=== PATIENT | female | born 1985 ===

== ENCOUNTER 2016-11-16 22:39 | Emergency (ER) | payer MEDICAID ==
[2016-11-16 22:39] VITALS: BMI 24.5
[2016-11-16 22:59] VITALS: BP 99/66; PULSE 85; RESP 16; TEMP 98.4; O2SAT 100
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
== END 2016-11-17 00:08 | disposition home or self-care (01) ==
LOC: H.ER 22:39
DX: S00.83XA Contusion of other part of head, initial encounter (principal); W50.0XXA Accidental hit or strike by another person, initial encounter

== ENCOUNTER 2017-02-01 10:23 | Emergency (ER) | payer MEDICAID ==
[2017-02-01 10:28] VITALS: BMI 24.7
[2017-02-01 10:31] VITALS: BP 136/57; PULSE 74; RESP 18; TEMP 99; O2SAT 99
[2017-02-01 11:19] LABS: SQUAMOUS EPITHIAL 1 /hpf (0-5); URINE BACTERIA RARE (<OCC); URINE BILIRUBIN NEGATIVE (NEGATIVE); URINE BLOOD NEGATIVE (NEGATIVE); URINE CLARITY CLEAR (Clear); URINE COLOR YELLOW (YELLOW); URINE GLUCOSE (UA) NEG (Normal); URINE LEUKOCYTE ESTERASE NEG Leu/uL (Negative); URINE NITRATE NEGATIVE (NEGATIVE); URINE PROTEIN NEGATIVE (NEGATIVE); URINE UROBILINOGEN 0.2-1.0 mg/dL (0.2-1.0)
--- NOTE | 2017-02-01 11:19 | ED PDOC ---
HPI: Abdomen Time Seen by Provider: 02/01/17 11:00 Chief Complaint (Nursing): Abdominal Pain Chief Complaint (Provider): ABDOMINAL PAIN History Per: Patient (31 Y/O FEMALE APPROX 8 WEEK GESTATION HERE WITH LEFT SIDED FLANK/LOWER ABDOMINAL PAIN X 1 DAY GRADUAL ONSET. NOTES ADDITIONAL BURING WITH URINATION. DENIES ANY FEVERS/CHILLS/VOMITING. US SCHEDULED 02/11.) Past Medical History Reviewed: Historical Data, Nursing Documentation, Vital Signs Vital Signs: Last Vital Signs Temp 99 F 02/01/17 10:28 Pulse 74 02/01/17 10:28 Resp 18 02/01/17 10:28 BP 136/57 L 02/01/17 10:28 Pulse Ox 99 02/01/17 14:14 - Medical History PMH: Asthma, Migraine - Family History Family History: States: Unknown Family Hx - Immunization History Hx Tetanus Toxoid Vaccination: Yes - Home Medications Home Medications: Ambulatory Orders Medication Instructions Recorded Bacitracin [Bacitracin Opht OINT] 1 applic OD Q4 #1 tube 01/19/17 - Allergies Allergies/Adverse Reactions: Allergies Allergy/AdvReac Type Severity Reaction Status Date / Time No Known Allergies Allergy Verified 01/19/17 11:19 Review of Systems ROS Statement: Except As Marked, All Systems Reviewed And Found Negative Physical Exam - Reviewed Nursing Documentation Reviewed: Yes Vital Signs Reviewed: Yes - Physical Exam Appears: Positive for: Well, Non-toxic, No Acute Distress Head Exam: Positive for: ATRAUMATIC, NORMAL INSPECTION, NORMOCEPHALIC Skin: Positive for: Normal Color, Warm, DRY Eye Exam: Positive for: EOMI, Normal appearance, PERRL ENT: Positive for: Normal ENT Inspection Neck: Positive for: Normal, Painless ROM Cardiovascular/Chest: Positive for: Regular Rate, Rhythm Respiratory: Positive for: CNT, Normal Breath Sounds Gastrointestinal/Abdominal: Positive for: Normal Exam, Bowel Sounds, Soft, Tenderness (LUQ/LLQ) Pelvic Exam: Positive for: Tender Adnexa (MILD TENDERNESS LEFT ADNEXA.) Back: Positive for: Normal Inspection Extremity: Positive for: Normal ROM Neurologic/Psych: Positive for: Alert, Oriented - Laboratory Results Result Diagrams: 02/01/17 11:10 02/01/17 11:10 - ECG O2 Sat by Pulse Oximetry: 99 Medical Decision Making Medical Decision Making: US RENAL FINDINGS: RIGHT KIDNEY: Measures: cm. Normal in size, contour and echogenicity. No stone, solid mass lesion or hydronephrosis visualized. LEFT KIDNEY: Measures: cm. Normal in size, contour and echogenicity. No stone, solid mass lesion or hydronephrosis visualized. OTHER FINDINGS: None. IMPRESSION: Unremarkable renal sonogram. US TRANSVAGINAL FINDINGS: Single live intrauterine gestation with crown-rump length of 2 millimeters corresponding to 5 weeks and 5 days gestational age. heart motion is observed. 2.6 centimeter left ovarian corpus luteum. IMPRESSION: As above. Disposition - Clinical Impression Clinical Impression: Abdominal pain during , Ovarian cyst - Patient ED Disposition Is Patient to be Admitted: No - Disposition Referrals: Provider TBD, [Primary Care Provider] - Disposition: Routine/Home Disposition Time: 14:13 Condition: FAIR Instructions: Threatened Miscarriage (ED), Ovarian Cyst (ED) Forms: [facility] ED School/Work Excuse
[2017-02-01 11:36] LABS: BASO % 0.3 % (0.0-2.0); EOS # 0.1 K/uL (0.0-0.7); EOS % 1.2 % (0.0-4.0); HEMOGLOBIN 12.3 g/dL (12.0-16.0); LYMPH # 2.2 K/uL (1.0-4.3); LYMPH % 25.6 % (20.0-40.0); MEAN CORPUSCULAR HEMOGLOBIN 29.8 pg (27.0-31.0); MEAN CORPUSCULAR HGB CONC 33.1 g/dL (33.0-37.0); MEAN PLATELET VOLUME 8.1 fl (7.2-11.7); MONO # 0.6 K/uL (0.0-0.8); MONO % 6.8 % (0.0-10.0); NEUT # 5.8 K/uL (1.8-7.0); NEUT % 66.1 % (50.0-75.0); RBC 4.12 Mil/uL (3.80-5.20); RED CELL DISTRIBUTION WIDTH 13.3 % (11.5-14.5); WHITE BLOOD COUNT 8.7 K/uL (4.8-10.8)
[2017-02-01 11:50] LABS: ALB/GLOB RATIO 1.5 (1.0-2.1); ALBUMIN 4.1 g/dL (3.5-5.0); ALT/SGPT 25 U/L (9-52); AST/SGOT 18 U/L (14-36); BLOOD UREA NITROGEN 11 mg/dl (7-17); CALCIUM 8.9 mg/dL (8.4-10.2); GFR AFRICAN-AMERICAN > 60; GFR NON-AFRICAN AMERICAN > 60
--- NOTE | 2017-02-01 14:05 | US ---
PROCEDURE: Ultrasound of the Kidneys HISTORY: LEFT FLANK EVALUATE FOR HYDRONEPHROSIS/PYELONEPHRI COMPARISON: None available. TECHNIQUE: Sonogram of the kidneys. FINDINGS: RIGHT KIDNEY: Measures: cm. Normal in size, contour and echogenicity. No stone, solid mass lesion or hydronephrosis visualized. LEFT KIDNEY: Measures: cm. Normal in size, contour and echogenicity. No stone, solid mass lesion or hydronephrosis visualized. OTHER FINDINGS: None. IMPRESSION: Unremarkable renal sonogram.
--- NOTE | 2017-02-01 14:06 | US ---
PROCEDURE: HISTORY: LEFT ABDOMINAL PAIN EVALUATION FOR ECTOPIC/CYST COMPARISON: TECHNIQUE: FINDINGS: Single live intrauterine gestation with crown-rump length of 2 millimeters corresponding to 5 weeks and 5 days gestational age. heart motion is observed. 2.6 centimeter left ovarian corpus luteum. IMPRESSION: As above.
== END 2017-02-01 14:15 | disposition home or self-care (01) ==
LOC: SUPCPDRO 10:23 → H.ER 10:23
DX: O26.899 Other specified pregnancy related conditions, unspecified trimester (principal); N83.292 Other ovarian cyst, left side

== ENCOUNTER 2017-02-21 19:04 | Emergency (ER) | payer MEDICAID ==
[2017-02-21 19:04] VITALS: BMI 24.7
[2017-02-21 19:30] VITALS: BP 123/61; PULSE 84; RESP 16; TEMP 98.6; O2SAT 99
[2017-02-21] MEDS ORDERED: Docusate-Senna 50 mg-8.6 mg Tab PO STA (19:55)
--- NOTE | 2017-02-21 20:21 | ED PDOC ---
HPI: Abdomen Time Seen by Provider: 02/21/17 19:48 Chief Complaint (Nursing): Abdominal Pain Chief Complaint (Provider): flank pain History Per: Patient History/Exam Limitations: no limitations Onset/Duration Of Symptoms: Days (14) Current Symptoms Are (Timing): Still Present Pain Scale Rating Of: 3 Location Of Pain/Discomfort: Other (L/flank) Quality Of Discomfort: "Pain" Associated Symptoms: Urinary Symptoms Additional Complaint(s): 31 y/o F at 9 weeks IUP presents to ED c/o persistent L/flank pain for the past 2 weeks. Last BM 3 days ago and she noticed small amount of blood in the urine today and c/o dysuria. Denies vaginal bleeding, CP, palpitations, diarrhea , hx of trauma, dizziness or SOB. Patient had renal and TV US on 02/01/17 that shows no 2.6 cm L/ovarian corpus luteum and US consistent at the time with 5.5W . No Kidney stones. Denies fever. Abnormal Vaginal Bleeding: No Last Menstral Period: 12/26/16 : 4 Para: 2 Miscarriage: 1 Past Medical History Vital Signs: Last Vital Signs Temp 98.6 F 02/21/17 19:25 Pulse 84 02/21/17 19:25 Resp 16 02/21/17 19:25 BP 123/61 02/21/17 19:25 Pulse Ox 99 02/21/17 22:53 - Medical History PMH: Asthma, Migraine Denies: Chronic Kidney Disease - Family History Family History: States: Unknown Family Hx - Immunization History Hx Tetanus Toxoid Vaccination: Yes - Home Medications Home Medications: Ambulatory Orders Medication Instructions Recorded Bacitracin [Bacitracin Opht OINT] 1 applic OD Q4 #1 tube 01/19/17 Nitrofurantoin Macrocrystals 100 mg PO BID #14 cap 02/21/17 [Macrobid] - Allergies Allergies/Adverse Reactions: Allergies Allergy/AdvReac Type Severity Reaction Status Date / Time No Known Allergies Allergy Verified 01/19/17 11:19 Review of Systems ROS Statement: Except As Marked, All Systems Reviewed And Found Negative Genitourinary Female: Positive for: Dysuria, Hematuria, Other (Flank pain) Physical Exam - Reviewed Nursing Documentation Reviewed: Yes Vital Signs Reviewed: Yes - Physical Exam Appears: Positive for: Non-toxic, No Acute Distress Head Exam: Positive for: ATRAUMATIC, NORMAL INSPECTION Skin: Positive for: Warm, Dry Eye Exam: Positive for: EOMI, PERRL Cardiovascular/Chest: Positive for: Regular Rate, Rhythm. Negative for: Gallop , Murmur Respiratory: Positive for: Normal Breath Sounds. Negative for: Crackles, Wheezing Gastrointestinal/Abdominal: Positive for: Normal Exam Back: Negative for: L CVA Tenderness, R CVA Tenderness Extremity: Positive for: Normal ROM. Negative for: Pedal Edema, Calf Tenderness Neurologic/Psych: Positive for: Alert, Oriented - Laboratory Results Result Diagrams: 02/21/17 20:35 - ECG O2 Sat by Pulse Oximetry: 99 - Progress ED Course And Treament: WBC slightly elevated poss due to Urine: small blood and RBC 4 REst WNL US: WNL 8.5w IUP Patient improved Will be DC on Macrobid BID for poss UTI(Dysuria + Blood in the urine) Medical Decision Making Medical Decision Makin31 y/o F with no PMHx 9+ weeks by LMP presents c/o L/flank pain L/flank pain hematuria + dysuria R/O UTI Pelvic and TV US Senokot for constipation Disposition - Clinical Impression Clinical Impression: Constipation, UTI (urinary tract infection) - Disposition Disposition Time: 22:50 Condition: IMPROVED Prescriptions: Nitrofurantoin Macrocrystals [Macrobid] 100 mg PO BID #14 cap Instructions: Constipation (ED), Urinary Tract Infection in (ED) Forms: [employer] (Sudanese)
[2017-02-21 20:49] LABS: MEAN CELL VOLUME 90.2 fl (81.0-99.0); MEAN CORPUSCULAR HGB CONC 33.2 g/dL (33.0-37.0); RBC 4.02 Mil/uL (3.80-5.20); RED CELL DISTRIBUTION WIDTH 13.5 % (11.5-14.5); WHITE BLOOD COUNT 12.2 K/uL (4.8-10.8)
[2017-02-21 20:51] LABS: SQUAMOUS EPITHIAL < 1 /hpf (0-5); URINE BACTERIA RARE (<OCC); URINE BILIRUBIN NEGATIVE (NEGATIVE); URINE BLOOD SMALL (NEGATIVE); URINE CLARITY SLIGHTY-CLOUDY (Clear); URINE COLOR YELLOW (YELLOW); URINE GLUCOSE (UA) NEG (Normal); URINE LEUKOCYTE ESTERASE NEG Leu/uL (Negative); URINE NITRATE NEGATIVE (NEGATIVE); URINE PROTEIN NEGATIVE (NEGATIVE); URINE UROBILINOGEN 0.2-1.0 mg/dL (0.2-1.0)
--- NOTE | 2017-02-21 22:45 | US ---
EXAM: US Uterus, Limited CLINICAL HISTORY: 31 years old, female; Pain; Other: Abd pain; Gestational age or lmp: Unknown; ; Additional info: Preg abd pain TECHNIQUE: Real-time ultrasound of the maternal uterus (limited) with image documentation. COMPARISON: No relevant prior studies available. FINDINGS: A single intrauterine gestation is identified with a crown-rump length measuring 2.1 cm, corresponding to an approximate gestational age of 8 weeks and 5 days. cardiac activity is identified at the rate of 171 beats per minute. The cervix measures 4.5 cm, and is closed. The right ovary is unremarkable in echogenicity and size measuring 1.9 x 1.6 x 2.0 cm. Dopplerable flow is identified. The left ovary is unremarkable in echogenicity and size and measures 2.7 x 2.0 x 3.0 cm. Dopplerable flow is identified. IMPRESSION: Single intrauterine gestation with approximate gestational age of 8 weeks and 5 days. cardiac activity is identified.
== END 2017-02-21 23:04 | disposition home or self-care (01) ==
LOC: H.ER 19:04
DX: O23.41 Unspecified infection of urinary tract in pregnancy, first trimester (principal); Z3A.09 9 weeks gestation of pregnancy; O26.891 Other specified pregnancy related conditions, first trimester; K59.00 Constipation, unspecified

== ENCOUNTER 2017-02-27 21:42 | Emergency (ER) | payer MEDICAID ==
[2017-02-27 21:43] VITALS: BMI 24.7
[2017-02-27 21:48] VITALS: BP 116/60; PULSE 83; RESP 16; TEMP 99.1; O2SAT 100
--- NOTE | 2017-02-27 23:47 | ED PDOC ---
HPI: Skin/Bite Injury Time Seen by Provider: 02/27/17 22:16 Chief Complaint (Nursing): ENT Problem Chief Complaint (Provider): Skin Issue History Per: Patient History/Exam Limitations: no limitations Onset/Duration Of Symptoms: Days (x2) Current Symptoms Are (Timing): Still Present Location Of Injury: Right: Mouth (Sore on right lower lip) Quality Of Symptoms: Painful Additional Complaint(s): 31 year old female presents to ED with complaints of a sore on her right lower lip x2 days and is currently 10 weeks . Patient notes sore is increasingly painful and created cause for concern, prompting ED visit. (-) fever, ear pain, sore throat, or vomiting. Patient also notes swelling of her face from swollen lymph nodes. PCP: Arnulfo Moreno Past Medical History Reviewed: Historical Data, Nursing Documentation, Vital Signs Vital Signs: Last Vital Signs Temp 99.1 F 02/27/17 21:44 Pulse 83 02/27/17 21:44 Resp 16 02/27/17 21:44 BP 116/60 02/27/17 21:44 Pulse Ox 100 02/27/17 21:44 - Medical History PMH: Asthma, Migraine Denies: Chronic Kidney Disease - Surgical History Surgical History: No Surg Hx - Family History Family History: States: Unknown Family Hx - Social History Current smoker - smoking cessation education provided: No Ex-Smoker (has not smoked in the last 12 months): No Alcohol: None Drugs: Denies - Immunization History Hx Tetanus Toxoid Vaccination: Yes - Home Medications Home Medications: Ambulatory Orders Medication Instructions Recorded Bacitracin [Bacitracin Opht OINT] 1 applic OD Q4 #1 tube 01/19/17 Nitrofurantoin Macrocrystals 100 mg PO BID #14 cap 02/21/17 [Macrobid] Valacyclovir HCl [Valtrex] 2 gm PO BID #4 tablet 02/27/17 - Allergies Allergies/Adverse Reactions: Allergies Allergy/AdvReac Type Severity Reaction Status Date / Time No Known Allergies Allergy Verified 02/27/17 21:44 Review of Systems ROS Statement: Except As Marked, All Systems Reviewed And Found Negative Constitutional: Negative for: Fever ENT: Negative for: Ear Pain, Throat Pain Gastrointestinal: Negative for: Vomiting Skin: Positive for: Other (Sore on right lower lip) Physical Exam - Reviewed Nursing Documentation Reviewed: Yes Vital Signs Reviewed: Yes - Physical Exam Appears: Positive for: Non-toxic, No Acute Distress Head Exam: Positive for: ATRAUMATIC, NORMOCEPHALIC Skin: Positive for: Normal Color, Warm, Dry Eye Exam: Positive for: Normal appearance, EOMI, PERRL ENT: Positive for: Pharynx Is (clear). Negative for: Normal ENT Inspection ( Right vasicular lesion on right lower lip (2cm x2cm). Appears to be herpes labialis) Neck: Positive for: Painless ROM, Supple. Negative for: Normal (Multiple lumph nodes in submandibular and cervical area are swollen) Cardiovascular/Chest: Positive for: Regular Rate, Rhythm. Negative for: Murmur Respiratory: Positive for: Normal Breath Sounds. Negative for: Respiratory Distress Neurologic/Psych: Positive for: Alert, Oriented. Negative for: Motor/Sensory Deficits - ECG O2 Sat by Pulse Oximetry: 100 (RA) Pulse Ox Interpretation: Normal Medical Decision Making Medical Decision Makin Initial impression: herpes labialis Initial plan: Explained to patient about herpes labialis and answered questions. Patient will follow up with PCP x1-2 days. Prescribes Valtrex. Patient is medically stable for discharge home. Scribe Attestation: Documented by Marielle Tabor acting as a scribe for Phil Barajas MD. Scribe Attestation: All medical record entries made by the Scribe were at my direction and personally dictated by me. I have reviewed the chart and agree that the record accurately reflects my personal performance of the history, physical exam, medical decision making, and the department course for this patient. I have also personally directed, reviewed, and agree with the discharge instructions and disposition. Disposition - Clinical Impression Clinical Impression: Herpes labialis - Disposition Disposition: Routine/Home Disposition Time: 23:15 Condition: IMPROVED Additional Instructions: follow up with your primary doctor in 1-2 days return to the ED with any worsening or concerning symptoms Prescriptions: Valacyclovir HCl [Valtrex] 2 gm PO BID #4 tablet Instructions: Oral Herpes Simplex Virus Infections (ED) Forms: [facility] (Kyrgyz), [facility] ED School/Work Excuse
== END 2017-02-27 23:11 | disposition home or self-care (01) ==
LOC: H.ER 21:42
DX: B00.1 Herpesviral vesicular dermatitis (principal)

== ENCOUNTER 2017-04-08 23:27 | Emergency (ER) | payer MEDICAID ==
[2017-04-08 23:28] VITALS: BMI 24.7
[2017-04-08 23:43] VITALS: BP 106/49; PULSE 81; RESP 16; TEMP 98.9; O2SAT 100
--- NOTE | 2017-04-08 23:54 | ED PDOC ---
HPI: Female Pain Time Seen by Provider: 04/08/17 23:46 Chief Complaint (Nursing): Abdominal Pain Chief Complaint (Provider): with abdominal pain History Per: Patient Additional Complaint(s): 31-year-old female presents to emergency department with abdominal pain. Patient is currently 16 weeks and has had intermittent lower abdominal pain for the past week. Patient states this evening she was lying down and felt cramping pain in both sides of her abdomen prompting ED visit. She denies fever or chills, she denies any dysuria, no vaginal bleeding. Patient is . Patient does state she has clear, non-odorous vaginal discharge which she has had for the past 4 weeks. Past Medical History Reviewed: Historical Data, Nursing Documentation, Vital Signs Vital Signs: Last Vital Signs Temp 98.9 F 04/08/17 23:39 Pulse 81 04/08/17 23:39 Resp 16 04/08/17 23:39 BP 106/49 L 04/08/17 23:39 Pulse Ox 100 04/08/17 23:39 - Medical History PMH: Asthma, Migraine - Surgical History Surgical History: No Surg Hx - Family History Family History: States: No Known Family Hx - Living Arrangements Living Arrangements: With Family - Social History Current smoker - smoking cessation education provided: No Alcohol: None Drugs: Denies - Home Medications Home Medications: Ambulatory Orders Medication Instructions Recorded Bacitracin [Bacitracin Opht OINT] 1 applic OD Q4 #1 tube 01/19/17 Nitrofurantoin Macrocrystals 100 mg PO BID #14 cap 02/21/17 [Macrobid] Valacyclovir HCl [Valtrex] 2 gm PO BID #4 tablet 02/27/17 - Allergies Allergies/Adverse Reactions: Allergies Allergy/AdvReac Type Severity Reaction Status Date / Time No Known Allergies Allergy Verified 02/27/17 21:44 Review of Systems ROS Statement: Except As Marked, All Systems Reviewed And Found Negative Constitutional: Negative for: Fever Cardiovascular: Negative for: Chest Pain Respiratory: Negative for: Cough, Shortness of Breath Gastrointestinal: Positive for: Abdominal Pain. Negative for: Nausea, Vomiting Genitourinary Female: Positive for: Vaginal Discharge (clear, non-odorous, x 4 weeks). Negative for: Dysuria, Frequency, Incontinence, Hematuria, Vaginal Bleeding Physical Exam - Reviewed Nursing Documentation Reviewed: Yes Vital Signs Reviewed: Yes - Physical Exam Appears: Positive for: Well, Non-toxic, No Acute Distress Skin: Negative for: Rash Eye Exam: Positive for: Normal appearance Cardiovascular/Chest: Positive for: Regular Rate, Rhythm Respiratory: Positive for: Normal Breath Sounds Gastrointestinal/Abdominal: Positive for: Other (Gravid nontender abdomen) Extremity: Positive for: Normal ROM. Negative for: Pedal Edema Neurologic/Psych: Positive for: Alert, Oriented - ECG O2 Sat by Pulse Oximetry: 100 Pulse Ox Interpretation: Normal Medical Decision Making Medical Decision Makin-year-old female with abdominal pain Plan: OB US UA/urine culture CHL/GC culture Disposition - Clinical Impression Clinical Impression: Abdominal pain during - Patient ED Disposition Is Patient to be Admitted: Transfer of Care - Disposition Disposition: Transfer of Care Disposition Time: 23:56 Condition: STABLE Patient Signed Over To: Kim Sherman Handoff Comments: Case was signed out to ENEDINA Sherman pending diagnostic testing results and final disposition
[2017-04-09 00:21] LABS: RBC URINE 4 /hpf (0-3); URINE BACTERIA OCC (<OCC); URINE BILIRUBIN NEGATIVE (NEGATIVE); URINE BLOOD NEGATIVE (NEGATIVE); URINE COLOR YELLOW (YELLOW); URINE GLUCOSE (UA) NEG (Normal); URINE KETONE NEGATIVE (NEGATIVE); URINE LEUKOCYTE ESTERASE TRACE Leu/uL (Negative); URINE PROTEIN NEGATIVE (NEGATIVE); URINE UROBILINOGEN 0.2-1.0 mg/dL (0.2-1.0); WBC URINE 3 /hpf (0-5)
--- NOTE | 2017-04-09 01:54 | ED PDOC ---
- ECG O2 Sat by Pulse Oximetry: 100 - Progress ED Course And Treament: Case endorsed to adjusto writer operator from [facility] pending u/s, urine EXAM: US After First Trimester, Transabdominal CLINICAL HISTORY: 31 years old, female; Pain; Other: Back pain; Gestational age or lmp: Lmp 2016; ; Additional info: 16 weeks, abd pain TECHNIQUE: Real-time transabdominal obstetrical ultrasound of the maternal pelvis and a second or third trimester with image documentation. COMPARISON: No relevant prior studies available. FINDINGS: Fetus: Single live intrauterine gestation. Heart rate: heart rate of 145 beats per minute. Presentation: Transverse. Placenta: Anterior placenta. No placenta previa or abruption. Amniotic fluid: Normal. Anatomy: No gross anomaly is appreciated. BIOMETRICS Gestational age by US: Estimated gestational age of 16 weeks 0 days by measurements. EFW: Estimated weight of 138 g. BPD: 3.4 cm, correlating with 16 weeks 3 days. HC: 11.4 cm, correlating with 15 weeks 4 days. AC: 9.1 cm, correlating with 15 weeks 2 days. FL: 2.2 cm, correlating with 16 weeks 3 days. MATERNAL: Uterus: Unremarkable. No myometrial mass. Cervix: No cervical dilatation or effacement. Adnexa: RIGHT ovary: Not visualized. LEFT ovary: Normal. No adnexal masses. Free fluid: No significant free fluid. IMPRESSION: 1. Single live intrauterine gestation. On re-eval, patient not in exam room. Patient left ED before treatment completed. Disposition - Clinical Impression Clinical Impression: Abdominal pain during - POA Present On Arrival: None - Disposition Disposition: Left W/O Treatment Disposition Time: 01:54 Condition: STABLE
--- NOTE | 2017-04-09 02:26 | US ---
EXAM: US After First Trimester, Transabdominal CLINICAL HISTORY: 31 years old, female; Pain; Other: Back pain; Gestational age or lmp: Lmp 12/21/2016; ; Additional info: 16 weeks, abd pain TECHNIQUE: Real-time transabdominal obstetrical ultrasound of the maternal pelvis and a second or third trimester with image documentation. COMPARISON: No relevant prior studies available. FINDINGS: Fetus: Single live intrauterine gestation. Heart rate: heart rate of 145 beats per minute. Presentation: Transverse. Placenta: Anterior placenta. No placenta previa or abruption. Amniotic fluid: Normal. Anatomy: No gross anomaly is appreciated. BIOMETRICS Gestational age by US: Estimated gestational age of 16 weeks 0 days by measurements. EFW: Estimated weight of 138 g. BPD: 3.4 cm, correlating with 16 weeks 3 days. HC: 11.4 cm, correlating with 15 weeks 4 days. AC: 9.1 cm, correlating with 15 weeks 2 days. FL: 2.2 cm, correlating with 16 weeks 3 days. MATERNAL: Uterus: Unremarkable. No myometrial mass. Cervix: No cervical dilatation or effacement. Adnexa: RIGHT ovary: Not visualized. LEFT ovary: Normal. No adnexal masses. Free fluid: No significant free fluid. IMPRESSION: 1. Single live intrauterine gestation.
== END 2017-04-09 01:57 | disposition left against medical advice (07) ==
LOC: H.ER 23:27
DX: O23.40 Unspecified infection of urinary tract in pregnancy, unspecified trimester (principal); Z3A.16 16 weeks gestation of pregnancy; J45.909 Unspecified asthma, uncomplicated